=== PATIENT | female | born 1990 | race Caucasian/White ===

== ENCOUNTER 2017-02-19 08:53 | Emergency (ER) | payer SELFPAY ==
[2017-02-19] MEDS ORDERED: TYLENOL ONE (09:44)
[2017-02-19] MEDS ORDERED: TYLENOL PO ONE (09:53)
[2017-02-19 10:24] LABS: Basophils % (Auto) 0.7 % (0.0-1.8); Eosinophils % (Auto) 0.1 % (0.0-4.3); Hematocrit 34.9 % (30.3-42.9); Mean Corpuscular HGB Conc 31 % (30-34); Mean Corpuscular Hemoglobin 22 pg (28-32); Mean Corpuscular Volume 71 fl (79-97); Platelet Count 252 K/mm3 (140-440); Red Blood Count 4.93 M/mm3 (3.65-5.03); Red Cell Distribution Width 17.7 % (13.2-15.2); White Blood Count 8.6 K/mm3 (4.5-11.0)
--- NOTE | 2017-02-19 10:37 | XRay Report ---
CHEST 2 VIEWS INDICATION: Shortness of breath. COMPARISON: 03/19/2014. FINDINGS: PA and lateral chest radiographs demonstrate normal cardiomediastinal silhouette. Clear lungs. Intact bones. CONCLUSION: No acute disease in the chest. Thank you for the opportunity to participate in this patient's care.
[2017-02-19 10:42] LABS: Anion Gap 17 mmol/L; BUN/Creatinine Ratio 11.42; Blood Urea Nitrogen 8 mg/dL (7-17); Calcium 8.8 mg/dL (8.4-10.2); Carbon Dioxide 20 mmol/L (22-30); Glucose 128 mg/dL (65-100); Sodium 135 mmol/L (137-145)
[2017-02-19] MEDS ORDERED: ZOFRAN ODT ONE (14:09)
[2017-02-19] MEDS ORDERED: ZOFRAN ODT PO ONE (14:13)
--- NOTE | 2017-02-19 14:22 | Emergency Department Report ---
HPI - General Chief Complaint: Upper Respiratory Infection Time Seen by Provider: 02/19/17 14:03 - HPI HPI: Room 6 The patient is a 26-year-old female presenting with a chief complaint of fever. The patient states her symptoms began 3 days ago with a subjective fever. The patient states she also nasal and chest congestion. Patient admits to a cough is occasionally productive of green sputum with occasional blood. Patient admits to rhinorrhea. Patient denies sick contacts. Patient states she has taken Mucinex Kelly and ibuprofen but it has not helped her symptoms. The patient admits to one episode of nausea vomiting but experience to 3 episodes of diarrhea daily for the past 4 days. Patient denies recent antibiotics Location: [see above] Duration: 3-4 days Quality: Subjective fever and congestion Severity: Moderate Modifying factors: [see above] Context: [see above] Mode of transportation: Unknown ED Past Medical Hx - Past Medical History Previous Medical History?: Yes Hx Asthma: Yes - Surgical History Past Surgical History?: No - Family History Family history: no significant - Social History Smoking Status: Never Smoker Substance Use Type: Alcohol (occasional) - Medications Home Medications: Home Medications Medication Instructions Recorded Confirmed Last Taken Type Albuterol Sulfate [Ventolin HFA] 2 puff IH Q4H PRN #1 hfa.aer.ad 03/19/1403/30/14 17:30 Rx ALBUTEROL Inhaler [Proair] 2 puff IH QID PRN #1 inhalation 02/19/17 Unknown Rx Azithromycin [Zithromax Z-NENO] 0 mg PO DAILY #6 tab 02/19/17 Unknown Rx Benzonatate [Tessalon Perles] 100 mg PO Q8HR #30 capsule 02/19/17 Unknown Rx Cyclobenzaprine [Flexeril] 10 mg PO TID PRN #14 tablet 02/19/17 Unknown Rx Ibuprofen [Motrin 800 MG tab] 800 mg PO Q8HR PRN #20 tablet 02/19/17 Unknown Rx Promethazine [Phenergan TAB] 25 mg PO Q6HR PRN #20 tab 02/19/17 Unknown Rx Promethazine [Phenergan] 25 mg NC Q6HR PRN #5 supp.rect 02/19/17 Unknown Rx ED Review of Systems ROS: Stated complaint: COLD SYMPTOMS Other details as noted in HPI Comment: All other systems reviewed and negative Constitutional: fever Eyes: denies: eye pain, eye discharge, vision change ENT: denies: ear pain, throat pain Respiratory: cough Cardiovascular: denies: chest pain, palpitations Endocrine: no symptoms reported Gastrointestinal: nausea, vomiting, diarrhea Genitourinary: denies: urgency, dysuria, discharge Musculoskeletal: denies: back pain, joint swelling, arthralgia Skin: denies: rash, lesions Neurological: denies: headache, weakness, paresthesias Psychiatric: denies: anxiety, depression Hematological/Lymphatic: denies: easy bleeding, easy bruising Physical Exam - Physical Exam Vital Signs: Vital Signs 02/19/17 02/19/17 02/19/17 09:49 12:12 12:15 Temperature 102.5 F H Pulse Rate 103 H 88 Respiratory 22 16 Rate Blood Pressure 135/80 132/65 116/63 O2 Sat by Pulse 97 99 Oximetry Physical Exam: GENERAL: The patient is well-developed well-nourished female lying on stretcher with facemask in place not appear to be in acute distress. Asleep but easily awakened HEENT: Normocephalic. Atraumatic. Extraocular motions are intact. NECK: Supple. Trachea midline CHEST/LUNGS: Clear to auscultation. There is no respiratory distress noted. HEART/CARDIOVASCULAR: Regular. There is no tachycardia. There is no gallop rub or murmur. ABDOMEN: Abdomen is soft, nontender. Patient has normal bowel sounds. There is no abdominal distention. SKIN: There is no rash. There is no edema. There is no diaphoresis. NEURO: The patient is awake, alert, and oriented. The patient is cooperative. The patient has normal speech MUSCULOSKELETAL: There is no evidence of acute injury. ED Course Vital Signs 02/19/17 02/19/17 02/19/17 09:49 12:12 12:15 Temperature 102.5 F H Pulse Rate 103 H 88 Respiratory 22 16 Rate Blood Pressure 135/80 132/65 116/63 O2 Sat by Pulse 97 99 Oximetry ED Medical Decision Making - Lab Data Result diagrams: 02/19/17 10:12 02/19/17 10:12 Laboratory Tests 02/19/17 02/19/17 02/19/17 10:12 10:12 10:12 WBC 8.6 RBC 4.93 Hgb 11.0 Hct 34.9 MCV 71 L MCH 22 L MCHC 31 RDW 17.7 H Plt Count 252 Lymph % (Auto) 5.7 L Bibb % (Auto) 4.9 Eos % (Auto) 0.1 Baso % (Auto) 0.7 Lymph # 0.5 L Bibb # 0.4 Eos # 0.0 Baso # 0.1 Seg Neutrophils % 88.6 H Seg Neutrophils # 7.6 Sodium 135 L Potassium 4.0 Chloride 102.0 Carbon Dioxide 20 L Anion Gap 17 BUN 8 Creatinine 0.7 Estimated GFR > 60 BUN/Creatinine Ratio 11.42 Glucose 128 H Calcium 8.8 Troponin T < 0.010 HCG, Qual Negative influenza negative - Radiology Data Radiology results: image reviewed (CXR) interpreted by me: CXR- no focal infiltrates no ptx - Differential Diagnosis pneumonia, bronchitis, influenza Critical care attestation.: If time is entered above; I have spent that time in minutes in the direct care of this critically ill patient, excluding procedure time. ED Disposition Clinical Impression: Acute bronchitis, Cough, Fever Disposition: DISCHARGED TO HOME OR SELFCARE Is pt being admited?: No Does the pt Need Aspirin: No Condition: Stable Instructions: Acute Bronchitis (ED) Additional Instructions: Return to the emergency department immediately should you develop worsening symptoms, fever, inability to tolerate food or liquid or any other concerns. Prescriptions: ALBUTEROL Inhaler [Proair] 2 puff IH QID PRN #1 inhalation PRN Reason: Shortness Of Breath Azithromycin [Zithromax Z-NENO] 0 mg PO DAILY #6 tab Benzonatate [Tessalon Perles] 100 mg PO Q8HR #30 capsule Cyclobenzaprine [Flexeril] 10 mg PO TID PRN #14 tablet PRN Reason: Muscle Spasm Ibuprofen [Motrin 800 MG tab] 800 mg PO Q8HR PRN #20 tablet PRN Reason: Pain Promethazine [Phenergan TAB] 25 mg PO Q6HR PRN #20 tab PRN Reason: Nausea Promethazine [Phenergan] 25 mg NC Q6HR PRN #5 supp.rect PRN Reason: Vomiting Referrals: PRIMARY CARE, [Primary Care Provider] - 3-5 Days REMA SCHILLING MD [Staff Physician] - 3-5 Days (Dr. Schilling is primary physician. Please follow up with him to be established as a patient) Time of Disposition: 14:58
[2017-02-19 15:21] VITALS: BP 124/72
== END 2017-02-19 15:15 | disposition home or self-care (01) ==
LOC: ED 08:53
DX: J20.9 Acute bronchitis, unspecified (principal); J45.909 Unspecified asthma, uncomplicated
CPT/HCPCS: 36415; 71020; 80048; 84484; 84703; 85025; 87400; 99284; Q0162